=== PATIENT | female | born 1955 | race Caucasian/White ===

== ENCOUNTER 2018-12-02 12:47 | Emergency (ER) | payer BC, MEDICARE ==
[~2018-12-02] VITALS: Ht 162.6 cm; Wt 99.8 kg
[~2018-12-02 12:47] MED LIST: Z.0.ATIVAN1 MG PO; Z.0.COUMADIN5 MG PO; Z.0.DEXILANT60 MG PO; Z.0.LOPRESSOR25 MG PO; Z.0.NORVASC2.5 MG PO; Z.0.SERTRALINE HCL10 PO; Z.0.SYNTHROID50 MCG PO; Z.2.LOSARTAN-HCTZ1 E PO; [UNRECOGNIZED DRUG - OTHER] PO; [UNRECOGNIZED DRUG - OTHER] PO
[2018-12-02] MEDS ORDERED: LIDOCAINE VISC 2% SOLN 15 ML UDC PO ONE (13:15)
[2018-12-02] MEDS ORDERED: MAGNESIUM/ALUMINUM/SIMETHICONE 30 ML UDC PO ONE (13:15)
[2018-12-02 13:40] LABS: BILIRUBIN,URINE NEGATIVE (NEGATIVE); CLARITY,URINE CLEAR (CLEAR); COLOR,URINE YELLOW (YELLOW); KETONES,URINE NEGATIVE (NEGATIVE); LEUKOCYTE ESTERASE ,URINE MODERATE (NEGATIVE); NITRITE,URINE NEGATIVE (NEGATIVE); PROTEIN,URINE DIPSTICK NEGATIVE (NEGATIVE); URINE UROBILINOGEN 0.2 mg/dL (0.2 - 1)
[2018-12-02 14:00] LABS: BACTERIA,URINE RARE /HPF; EPITHELIAL CELLS,URINE FEW /LPF; TRANSITIONAL EPI CELLS,URINE RARE
[2018-12-02 14:15] LABS: BASOPHILS % 0.2 % (0.0-1.0); EOSINOPHILS # (AUTO) 0.1 (0.0-0.4); EOSINOPHILS % 3.1 % (0.0-6.0); HEMATOCRIT 42.9 % (34.2-44.1); LYMPHOCYTES # (AUTO) 1.3 (1.0-3.2); LYMPHOCYTES % 28.6 % (18.0-39.1); MEAN CORPUSCULAR HEMOGLOBIN 28.4 pg (28-32); MEAN CORPUSCULAR HGB CONC 32.6 g/dL (31-35); MONOCYTES # (AUTO) 0.3 (0.2-0.8); MONOCYTES % 6.5 % (4.4-11.3); NEUTROPHILS # (AUTO) 2.8 (2.1-6.9); NEUTROPHILS % 61.4 % (38.7-80.0); PLATELET COUNT 220 x10e3/uL (140-360); RED BLOOD COUNT 4.93 x10e6/uL (3.6-5.1); RED CELL DISTRIBUTION WIDTH 13.3 % (11.7-14.4)
[2018-12-02 14:44] LABS: ALBUMIN 4.1 g/dL (3.5-5.0); ALBUMIN/GLOBULIN RATIO 0.9 (0.8-2.0); CALCIUM 10.2 mg/dL (8.4-10.2); CREATININE, SERUM 1.21 mg/dL (0.57-1.11)
[2018-12-02 14:58] LABS: CREATINE KINASE MB 2.6 ng/mL (0-5.0)
[2018-12-02] MEDS ORDERED: BELLADONNA ALK/PHENOBARBITAL 5 ML UDC PO SCH (15:00)
== END 2018-12-02 15:45 | disposition home or self-care (01) ==
LOC: ER 12:47
DX: K21.9 Gastro-esophageal reflux disease without esophagitis (principal); I10 Essential (primary) hypertension; E03.9 Hypothyroidism, unspecified; F41.9 Anxiety disorder, unspecified; F32.9 Major depressive disorder, single episode, unspecified; R00.1 Bradycardia, unspecified; Z79.01 Long term (current) use of anticoagulants
CPT/HCPCS: 36415; 80053; 81001; 82150; 82550; 82553; 83690; 84484; 85025; 87086; 93005; 99284

== ENCOUNTER 2020-08-26 13:03 | Emergency (ER) | payer MEDICARE ==
[~2020-08-26] VITALS: Ht 162.6 cm; Wt 86.2 kg
[2020-08-26] MEDS ORDERED: ONDANSETRON HCL INJ 2MG/ML 2ML 2 MG/ML VIAL IV STA (14:17)
[2020-08-26] MEDS ORDERED: ONDANSETRON HCL INJ 2MG/ML 2ML 2 MG/ML VIAL ONE (14:39)
== END 2020-08-26 16:24 | disposition home or self-care (01) ==
LOC: FSED 14:09
DX: R10.13 Epigastric pain (principal); K21.9 Gastro-esophageal reflux disease without esophagitis; I10 Essential (primary) hypertension; E03.9 Hypothyroidism, unspecified; F41.9 Anxiety disorder, unspecified; F32.9 Major depressive disorder, single episode, unspecified
CPT/HCPCS: 74176; 76705; 80048; 80076; 81003; 85025; 96374; 99284; J2405

== ENCOUNTER 2021-12-30 15:59 | Inpatient (IN) | payer MEDICARE ==
[~2021-12-30] VITALS: Ht 162.6 cm; Wt 92.1 kg
[2021-12-30] MEDS ORDERED: ONDANSETRON HCL INJ 2MG/ML 2ML 2 MG/ML VIAL IV STA (16:49)
[2021-12-30] MEDS ORDERED: Morphine 4mg INJECTION 4 MG/ML INJ IV ONE (17:00)
[2021-12-30 17:06] LABS: BASOPHILS % 0.3 % (0.0-1.0); EOSINOPHILS # (AUTO) 0.3 (0.0-0.4); EOSINOPHILS % 3.8 % (0.0-6.0); HEMATOCRIT 43.6 % (34.2-44.1); HEMOGLOBIN 13.5 g/dL (12.0-16.0); LYMPHOCYTES # (AUTO) 1.1 (1.0-3.2); LYMPHOCYTES % 16.6 % (18.0-39.1); MEAN CORPUSCULAR HEMOGLOBIN 28.2 pg (28-32); MEAN CORPUSCULAR VOLUME 91.2 fL (81-99); MONOCYTES # (AUTO) 0.3 (0.2-0.8); MONOCYTES % 4.4 % (4.4-11.3); NEUTROPHILS # (AUTO) 5.1 (2.1-6.9); NEUTROPHILS % 74.5 % (38.7-80.0); PLATELET COUNT 210 x10e3/uL (140-360); RED BLOOD COUNT 4.78 x10e6/uL (3.6-5.1); RED CELL DISTRIBUTION WIDTH 14.1 % (11.7-14.4)
[2021-12-30] MEDS ORDERED: ONDANSETRON HCL INJ 2MG/ML 2ML 2 MG/ML VIAL ONE (17:06)
[2021-12-30 17:28] LABS: ALANINE AMINOTRANSFERASE 18 IU/L (0-55); ALBUMIN 3.9 g/dL (3.5-5.0); ALBUMIN/GLOBULIN RATIO 0.9 (0.8-2.0); ALKALINE PHOSPHATASE 73 IU/L (40-150); ANION GAP 12.3 mmol/L (8-16); BLOOD UREA NITROGEN 19 mg/dL (7-26); BUN/CREATININE RATIO 18 (6-25); CALCIUM 9.6 mg/dL (8.4-10.2); CARBON DIOXIDE 29 mmol/L (22-29); CHLORIDE 103 mmol/L (98-107); CREATININE, SERUM 1.08 mg/dL (0.57-1.11); GLUCOSE 89 mg/dL (74-118); POTASSIUM 4.3 mmol/L (3.5-5.1); SODIUM 140 mmol/L (136-145)
[2021-12-30] MEDS: SODIUM CHLORIDE 0.9% 1000ML 1,000 ML IV SCH (19:03)
[2021-12-30] MEDS: HYDROMORPHONE 1MG/1ML INJ IV PRN (19:03)
[2021-12-30 21:29] VITALS: BP 115/62
[2021-12-30 21:48] VITALS: BP 115/62
[2021-12-30] MEDS ORDERED: GABAPENTIN300 MG PO (22:21)
[2021-12-30] MEDS ORDERED: OXYBUTYNIN CHLOR5 MG PO (22:21)
[2021-12-30] MEDS ORDERED: VITAMIN B COMP1 EAC1 (22:21)
[2021-12-30] MEDS ORDERED: PRAVASTATIN SOD40 MG (22:21)
[2021-12-30] MEDS ORDERED: BUPROPION XL150 MG PO (22:21)
[2021-12-30] MEDS ORDERED: PROTONIX20 MG PO (22:21)
[2021-12-30] MEDS ORDERED: DICYCLOMINE HCL20 MG PO (22:21)
[2021-12-30] MEDS ORDERED: PROVENTIL HFA6.7 GM INH (22:21)
[2021-12-30 22:26] VITALS: BP 115/62
[2021-12-31] VITALS (8 sets, daily range): BP systolic 99–134; BP diastolic 59–68
[2021-12-31] MEDS: ONDANSETRON HCL INJ 2MG/ML 2ML 2 MG/ML VIAL IV PRN ×3 (00:27→12:51)
[2021-12-31] MEDS: HYDROMORPHONE 1MG/1ML INJ IV PRN ×3 (00:27→12:52)
[2021-12-31] MEDS: SODIUM CHLORIDE 0.9% 1000ML 1,000 ML IV SCH ×3 (06:13→21:14)
[2021-12-31 06:20] LABS: BASOPHILS % 0.5 % (0.0-1.0); EOSINOPHILS # (AUTO) 0.2 (0.0-0.4); EOSINOPHILS % 3.8 % (0.0-6.0); HEMATOCRIT 41.2 % (34.2-44.1); HEMOGLOBIN 12.9 g/dL (12.0-16.0); LYMPHOCYTES # (AUTO) 1.6 (1.0-3.2); LYMPHOCYTES % 25.3 % (18.0-39.1); MEAN CORPUSCULAR HEMOGLOBIN 28.4 pg (28-32); MEAN CORPUSCULAR HGB CONC 31.3 g/dL (31-35); MEAN CORPUSCULAR VOLUME 90.7 fL (81-99); MONOCYTES # (AUTO) 0.6 (0.2-0.8); MONOCYTES % 10.2 % (4.4-11.3); NEUTROPHILS # (AUTO) 3.8 (2.1-6.9); PLATELET COUNT 161 x10e3/uL (140-360); RED BLOOD COUNT 4.54 x10e6/uL (3.6-5.1); RED CELL DISTRIBUTION WIDTH 14.3 % (11.7-14.4)
[2021-12-31 06:47] LABS: INR 0.88; PROTHROMBIN TIME 12.8 seconds (11.9-14.5)
[2021-12-31 06:52] LABS: ALBUMIN 3.2 g/dL (3.5-5.0); ANION GAP 12.4 mmol/L (8-16); CALCIUM 8.8 mg/dL (8.4-10.2); CREATININE, SERUM 1.11 mg/dL (0.57-1.11); POTASSIUM 4.4 mmol/L (3.5-5.1)
[2021-12-31] MEDS ORDERED: KETOROLAC TROMETHAMINE 30 MG/ML VIAL IV PRN (08:45)
[2021-12-31] MEDS ORDERED: HYDRALAZINE HCL 20 MG/ML VIAL IV PRN (08:45)
[2021-12-31] MEDS ORDERED: ALBUTEROL/IPRATROPIUM 3 ML NEB NEB PRN (09:15)
[2021-12-31] MEDS: OXYBUTYNIN CHLORIDE 5 MG TAB PO SCH ×2 (09:24→16:27)
[2021-12-31] MEDS: METOPROLOL TARTRATE 25 MG TAB PO SCH ×2 (09:25→16:27)
[2021-12-31] MEDS: LEVOTHYROXINE SODIUM 50 MCG TAB PO SCH (09:28)
[2021-12-31] MEDS ORDERED: EPHEDRINE SULFATE INJ 50 MG/ML VIAL ONE (13:09)
[2021-12-31] MEDS ORDERED: ONDANSETRON HCL INJ 2MG/ML 2ML 2 MG/ML VIAL ONE (13:09)
[2021-12-31] MEDS ORDERED: PROPOFOL IV EMULSION 10 MG/ML 20 ML VIAL ONE (13:09)
[2021-12-31] MEDS ORDERED: POVIDONE IODINE 0.05% 0.05 % ML PO ONE (13:09)
[2021-12-31] MEDS ORDERED: SEVOFLURANE INHAL SOLN 250 ML PEN BTL ONE (13:09)
[2021-12-31] MEDS ORDERED: DEXAMETHASONE SOD PHOS INJ 4 MG/ML SDV ONE (13:09)
[2021-12-31] MEDS ORDERED: FAMOTIDINE 20 MG/2 ML VIAL IV ONE (13:09)
[2021-12-31] MEDS ORDERED: ROCURONIUM BROMIDE 10 MG/ML 5ML VIAL IV ONE (13:09)
[2021-12-31] MEDS ORDERED: FENTANYL CITRATE/PF 100MCG/2 ML INJ ONE (18:16)
[2021-12-31] MEDS ORDERED: MIDAZOLAM HCL 2 MG/2 ML VIAL ONE (18:16)
[2021-12-31] MEDS ORDERED: SUGAMMADEX SODIUM 200 MG/2 ML VIAL IV ONE (18:16)
[2021-12-31] MEDS ORDERED: ACETAMINOPHEN 1000 MG/100 ML 100 ML IV ONE (18:17)
[2021-12-31] MEDS ORDERED: ALBUTEROL SULF 0.083% NEB SOLN 3 ML NEB ONE (19:35)
[2021-12-31] MEDS: SERTRALINE HCL 100 MG TAB PO SCH (21:26)
[2021-12-31] MEDS: HYDROCODONE/APAP 7.5MG-325MG 1 EA TAB PO PRN (21:32)
[2022-01-01] VITALS (8 sets, daily range): BP systolic 145–164; BP diastolic 73–94
[2022-01-01] MEDS: SODIUM CHLORIDE 0.9% 1000ML 1,000 ML IV SCH
[2022-01-01 05:16] LABS: BASOPHILS % 0.4 % (0.0-1.0); EOSINOPHILS % 0.4 % (0.0-6.0); HEMATOCRIT 37.9 % (34.2-44.1); HEMOGLOBIN 12.4 g/dL (12.0-16.0); LYMPHOCYTES # (AUTO) 0.6 (1.0-3.2); LYMPHOCYTES % 10.4 % (18.0-39.1); MEAN CORPUSCULAR HEMOGLOBIN 28.4 pg (28-32); MEAN CORPUSCULAR HGB CONC 32.7 g/dL (31-35); MEAN CORPUSCULAR VOLUME 86.9 fL (81-99); MONOCYTES # (AUTO) 0.3 (0.2-0.8); MONOCYTES % 5.7 % (4.4-11.3); NEUTROPHILS # (AUTO) 4.7 (2.1-6.9); NEUTROPHILS % 82.9 % (38.7-80.0); PLATELET COUNT 162 x10e3/uL (140-360); RED BLOOD COUNT 4.36 x10e6/uL (3.6-5.1); RED CELL DISTRIBUTION WIDTH 13.5 % (11.7-14.4)
[2022-01-01] MEDS: HYDROCODONE/APAP 7.5MG-325MG 1 EA TAB PO PRN (05:17)
[2022-01-01] MEDS: LEVOTHYROXINE SODIUM 50 MCG TAB PO SCH (05:17)
[2022-01-01 05:42] LABS: ANION GAP 13.1 mmol/L (8-16); CALCIUM 8.6 mg/dL (8.4-10.2); CREATININE, SERUM 0.8 mg/dL (0.57-1.11); POTASSIUM 4.1 mmol/L (3.5-5.1)
[2022-01-01] MEDS ORDERED: MAGNESIUM HYDROXIDE 30 ML UDC PO PRN (08:15)
[2022-01-01] MEDS: SENNA-S TABLET PO SCH ×2 (09:00→16:56)
[2022-01-01] MEDS: LIDOCAINE 4% PATCH TP SCH (09:00)
[2022-01-01] MEDS ORDERED: ASPIRIN 81 MG CHEW TAB PO SCH (09:00)
[2022-01-01] MEDS: METOPROLOL TARTRATE 25 MG TAB PO SCH ×2 (09:30→16:30)
[2022-01-01] MEDS ORDERED: SODIUM CHLORIDE 0.9% 250ML 250 ML ONE (09:47)
[2022-01-01 10:21] LABS: CLARITY,URINE CLOUDY (CLEAR); COLOR,URINE YELLOW (YELLOW); KETONES,URINE NEGATIVE (NEGATIVE); LEUKOCYTE ESTERASE ,URINE TRACE (NEGATIVE); NITRITE,URINE NEGATIVE (NEGATIVE); PROTEIN,URINE DIPSTICK 1+ (NEGATIVE); URINE UROBILINOGEN 0.2 mg/dL (0.2 - 1)
[2022-01-01 10:25] LABS: BACTERIA,URINE FEW /HPF; EPITHELIAL CELLS,URINE MODERATE /LPF; RBC,URINE >50 /HPF (0-5); WBC,URINE (MAN) 0-5 /HPF (0-5)
[2022-01-01] MEDS: HYDROCODONE/APAP 5MG-325MG TAB PO PRN (11:35)
[2022-01-01] MEDS: ENOXAPARIN SOD INJ 40 MG/0.4 ML SYR SC SCH (16:57)
[2022-01-01] MEDS ORDERED: ZIPRASIDONE 20 MG VIAL IM ONE (20:30)
[2022-01-01] MEDS: SERTRALINE HCL 100 MG TAB PO SCH (21:58)
[2022-01-02] VITALS (7 sets, daily range): BP systolic 153–167; BP diastolic 67–90
[2022-01-02 04:54] LABS: BASOPHILS % 0.4 % (0.0-1.0); EOSINOPHILS # (AUTO) 0.2 (0.0-0.4); EOSINOPHILS % 3.7 % (0.0-6.0); HEMATOCRIT 38.3 % (34.2-44.1); HEMOGLOBIN 12.4 g/dL (12.0-16.0); LYMPHOCYTES % 20.8 % (18.0-39.1); MEAN CORPUSCULAR HEMOGLOBIN 28.8 pg (28-32); MEAN CORPUSCULAR HGB CONC 32.4 g/dL (31-35); MEAN CORPUSCULAR VOLUME 89.1 fL (81-99); MONOCYTES # (AUTO) 0.4 (0.2-0.8); MONOCYTES % 8.6 % (4.4-11.3); NEUTROPHILS # (AUTO) 3.3 (2.1-6.9); NEUTROPHILS % 66.3 % (38.7-80.0); PLATELET COUNT 166 x10e3/uL (140-360); RED CELL DISTRIBUTION WIDTH 13.3 % (11.7-14.4)
[2022-01-02 05:16] LABS: ANION GAP 12.9 mmol/L (8-16); CALCIUM 9.2 mg/dL (8.4-10.2); CREATININE, SERUM 0.75 mg/dL (0.57-1.11); POTASSIUM 3.9 mmol/L (3.5-5.1)
[2022-01-02] MEDS: LEVOTHYROXINE SODIUM 50 MCG TAB PO SCH (06:21)
[2022-01-02] MEDS: METOPROLOL TARTRATE 25 MG TAB PO SCH ×2 (07:30→17:30)
[2022-01-02] MEDS: PANTOPRAZOLE SOD 40 MG TABEC PO SCH (07:30)
[2022-01-02] MEDS: SENNA-S TABLET PO SCH ×2 (09:00→17:00)
[2022-01-02] MEDS: LIDOCAINE 4% PATCH TP SCH (09:00)
[2022-01-02] MEDS: ENOXAPARIN SOD INJ 40 MG/0.4 ML SYR SC SCH (17:30)
[2022-01-02] MEDS ORDERED: ONDANSETRON HCL 4 MG ORAL DISINTEGRATING TAB PO PRN (18:15)
[2022-01-02] MEDS: SERTRALINE HCL 100 MG TAB PO SCH (21:46)
[2022-01-02] MEDS: MAGNESIUM/ALUMINUM/SIMETHICONE 30 ML UDC PO PRN (22:58)
[2022-01-03 01:11] VITALS: BP 168/83
[2022-01-03 06:20] VITALS: BP 174/83
[2022-01-03] MEDS: LEVOTHYROXINE SODIUM 50 MCG TAB PO SCH (06:24)
[2022-01-03] MEDS: PANTOPRAZOLE SOD 40 MG TABEC PO SCH (07:48)
[2022-01-03] MEDS: METOPROLOL TARTRATE 25 MG TAB PO SCH (07:49)
[2022-01-03] MEDS: SENNA-S TABLET PO SCH (08:02)
[2022-01-03] MEDS: LIDOCAINE 4% PATCH TP SCH (08:02)
[2022-01-03 08:08] VITALS: BP 173/88
[2022-01-03 08:17] VITALS: BP 173/88
[2022-01-03] MEDS ORDERED: CALCIUM CARBONATE 500 MG CHEWABLE TABS PO PRN (09:00)
[2022-01-03] MEDS ORDERED: APIXAB 2.5 MG TABLET PO SCH (09:30)
[2022-01-03] MEDS ORDERED: ALBUTEROL SULFATE HFA 8GM INHALATION AEROSOL INH PRN (10:00)
[2022-01-03] MEDS ORDERED: ALBUTEROL SULF 0.083% NEB SOLN 3 ML NEB NEB PRN ×2 (10:15→10:30)
[2022-01-03] MEDS ORDERED: LOSARTAN POTASSIUM 25 MG TAB PO SCH (10:30)
[2022-01-03] MEDS ORDERED: HYDROCHLOROTHIAZIDE 25 MG TAB PO SCH (10:30)
[2022-01-03] MEDS ORDERED: AMLODIPINE BESYLATE 5 MG TAB PO SCH (10:30)
[2022-01-03] MEDS: MAGNESIUM/ALUMINUM/SIMETHICONE 30 ML UDC PO PRN (11:10)
[2022-01-03] MEDS: HYDROCODONE/APAP 5MG-325MG TAB PO PRN (11:10)
[2022-01-03] MEDS ORDERED: DICYCLOMINE HCL 10 MG CAP PO SCH (13:00)
[2022-01-03] MEDS ORDERED: CEPHALEXIN 500 MG CAP PO SCH (14:00)
[2022-01-03] MEDS ORDERED: OXYBUTYNIN CHLORIDE 5 MG TAB PO SCH (17:00)
[2022-01-04] MEDS ORDERED: BUPROPION HCL 150 MG TABCR PO SCH (09:00)
== END 2022-01-03 14:14 | DRG 481 ==
LOC: ER 17:00 → ERHOLD 18:35 → MED/SURG 21:30
PROVIDERS: ADMIT Internal Medicine; ATTEND Internal Medicine
PROC: 0QS834Z Reposition Right Femoral Shaft with Internal Fixation Device, Percutaneous Approach (ICD-10-PCS; principal; 2021-12-30)
DX: S72.011A Unspecified intracapsular fracture of right femur, initial encounter for closed fracture (principal); F05 Delirium due to known physiological condition; N39.0 Urinary tract infection, site not specified; T83.518A Infection and inflammatory reaction due to other urinary catheter, initial encounter; W18.30XA Fall on same level, unspecified, initial encounter; Y92.009 Unspecified place in unspecified non-institutional (private) residence as the place of occurrence of the external cause; Z20.822 Contact with and (suspected) exposure to COVID-19; E03.9 Hypothyroidism, unspecified; K21.9 Gastro-esophageal reflux disease without esophagitis; E78.5 Hyperlipidemia, unspecified; G62.9 Polyneuropathy, unspecified; F32.A Depression, unspecified; F41.9 Anxiety disorder, unspecified; I10 Essential (primary) hypertension; J45.909 Unspecified asthma, uncomplicated; N32.81 Overactive bladder; I16.0 Hypertensive urgency; R31.0 Gross hematuria
CPT/HCPCS: 0223U; 36415; 70450; 71045; 76000; 80048; 80053; 81001; 85025; 85610; 85730; 86850; 86900; 93005; 94799; 99251; 99285; C1713; J0690; J0696; J1100; J1170; J1650; J1885; J2250; J2270; J2405; J3010; J7030; J7050

== ENCOUNTER 2022-08-15 13:02 | Emergency (ER) | payer MEDICARE ==
[~2022-08-15] VITALS: Ht 162.6 cm; Wt 92.1 kg
[~2022-08-15 13:02] MED LIST changes: +BUPROPION XL150 MG PO; +DICYCLOMINE HCL20 MG PO; +GABAPENTIN300 MG PO; +OXYBUTYNIN CHLOR5 MG PO; +PRAVASTATIN SOD40 MG; +PROTONIX20 MG PO; +PROVENTIL HFA6.7 GM INH; +VITAMIN B COMP1 EAC1
[2022-08-15] MEDS ORDERED: ONDANSETRON HCL INJ 2MG/ML 2ML 2 MG/ML VIAL IV PRN (13:45)
[2022-08-15] MEDS ORDERED: SODIUM CHLORIDE 0.9% 1000ML 1,000 ML IV ONE (13:45)
[2022-08-15 14:03] LABS: BASOPHILS % 0.2 % (0.0-1.0); EOSINOPHILS # (AUTO) 0.2 (0.0-0.4); HEMATOCRIT 42.8 % (34.2-44.1); HEMOGLOBIN 14.2 g/dL (12.0-16.0); LYMPHOCYTES # (AUTO) 1.4 (1.0-3.2); LYMPHOCYTES % 32.9 % (18.0-39.1); MEAN CORPUSCULAR HEMOGLOBIN 28.7 pg (28-32); MEAN CORPUSCULAR HGB CONC 33.2 g/dL (31-35); MEAN CORPUSCULAR VOLUME 86.5 fL (81-99); MONOCYTES # (AUTO) 0.2 (0.2-0.8); MONOCYTES % 5.4 % (4.4-11.3); NEUTROPHILS # (AUTO) 2.5 (2.1-6.9); NEUTROPHILS % 57.5 % (38.7-80.0); PLATELET COUNT 204 x10e3/uL (140-360); RED BLOOD COUNT 4.95 x10e6/uL (3.6-5.1); RED CELL DISTRIBUTION WIDTH 14.1 % (11.7-14.4)
[2022-08-15 14:16] LABS: ALBUMIN 4.3 g/dL (3.5-5.0); ALBUMIN/GLOBULIN RATIO 1.1 (0.8-2.0); ANION GAP 15.5 mmol/L (8-16); CALCIUM 9.9 mg/dL (8.4-10.2); CREATININE, SERUM 1.03 mg/dL (0.57-1.11); POTASSIUM 3.5 mmol/L (3.5-5.1)
[2022-08-15] MEDS ORDERED: IOPAMIDOL 610MG/1ML 300 MG/ML VIAL IV ONE (15:30)
[2022-08-15] MEDS ORDERED: ONDANSETRON HCL INJ 2MG/ML 2ML 2 MG/ML VIAL IV STA (17:17)
[2022-08-15] MEDS ORDERED: DICYCLOMINE HCL20 MG PO (17:19)
[2022-08-15] MEDS ORDERED: ONDANSETRON ODT4 MG PO (17:19)
[2022-08-15] MEDS ORDERED: FAMOTIDINE 20 MG TAB PO ONE (17:30)
[2022-08-15 17:52] VITALS: BP 165/84
== END 2022-08-15 17:56 | disposition home or self-care (01) ==
LOC: ER 13:13
DX: R11.0 Nausea (principal); K52.9 Noninfective gastroenteritis and colitis, unspecified; I10 Essential (primary) hypertension; E03.9 Hypothyroidism, unspecified; F41.9 Anxiety disorder, unspecified; K21.9 Gastro-esophageal reflux disease without esophagitis; Z96.651 Presence of right artificial knee joint
CPT/HCPCS: 36415; 74177; 80053; 83690; 85025; 99284; J2405; J7030; Q9967